=== PATIENT | male | born 1965 | race Caucasian/White ===

== ENCOUNTER 2022-06-22 17:30 | Emergency (ER) | payer OTHER ==
[~2022-06-22] VITALS: Ht 170.2 cm; Wt 82.1 kg
[2022-06-22 17:49] VITALS: BP_SYST 131
[2022-06-22] MEDS ORDERED: METOCLOPRAMIDE HCL 10 MG/2 ML VIAL ONE (17:58)
[2022-06-22] MEDS ORDERED: KETOROLAC TROMETHAMINE 30 MG VIAL IM ONE (18:00)
[2022-06-22] MEDS ORDERED: METOCLOPRAMIDE HCL 10 MG/2 ML VIAL IM ONE (18:00)
== END 2022-06-22 17:50 | disposition left against medical advice (07) ==
LOC: SED 17:30
DX: T88.9XXA Complication of surgical and medical care, unspecified, initial encounter (principal); R11.2 Nausea with vomiting, unspecified; G89.18 Other acute postprocedural pain; R10.9 Unspecified abdominal pain; Z88.5 Allergy status to narcotic agent; Z88.6 Allergy status to analgesic agent; Z79.899 Other long term (current) drug therapy
CPT/HCPCS: 99284; 96372; J1885; J2765